=== PATIENT | male | born 1950 | race Caucasian/White ===

== ENCOUNTER 2019-07-13 15:14 | Emergency (ER) | payer MEDICARE, OTHER, SELFPAY ==
[2019-07-13 15:17] VITALS: BP 150/79; PULSE 98; RESP 16; TEMP 37.2; O2SAT 97; BMI 34.9
--- NOTE | 2019-07-13 15:20 | DI.RAD.S_ITS ---
PROCEDURE: XR HIP W PEL IF DONE RT 2V INDICATIONS: right hip pain, runs down thru hip, knee and ankle TECHNIQUE: AP pelvis with lateral view(s) of the right hip(s). COMPARISON: None. FINDINGS: Bones: No fractures or dislocations. Moderate right hip joint osteophytic changes are seen. Mild left hip joint osteoarthritis is also noted. No evidence of avascular necrosis the femoral head. Pelvic ring appears intact. No suspicious bony lesions. Degenerative disc disease in visualized lower lumbar spine is seen. Soft tissues: The visualized bowel gas pattern is normal. No suspicious soft tissue calcifications. IMPRESSION: Right worse than left bilateral hip joint osteoarthritis. No hip fracture or dislocation. No evidence of avascular necrosis. Dictated by: Luis E Beard M.D. on 07/13/2019 at 15:45 Approved by: Luis E Beard M.D. on 07/13/2019 at 15:51
[2019-07-13] MEDS: CYCLOBENZAPRINE 10 MG TABLET PO (17:02)
[2019-07-13] MEDS: KETOROLAC 60 MG/2 ML VIAL 30 MG IM (17:02)
[2019-07-13] MEDS: LIDOCAINE PATCH 1 EACH ADH..PATCH TOP (17:02)
--- NOTE | 2019-07-13 17:47 | ED_ITS ---
HPI - Extremity Problem <ISIDORO Pereyra - Last Filed: 07/13/19 17:53> General Chief complaint: Extremity Problem,Nontraumatic Stated complaint: right hip pain Time Seen by Provider: 07/13/19 16:23 Source: patient Mode of arrival: Ambulatory Limitations: no limitations History of Present Illness HPI Narrative: The patient is a 69-year-old male with history of diabetes who presents with his for chief complaint of right-sided hip pain. States that he started having hip pain the other day when he was moving a mattress. He saw a chiropractor, and improved. Then he woke up and was worse again today. He denies any falls or trauma. States that it got worse when he was moving a mattress a few days ago by himself which was a clean site mattress. He states he had some muscle spasm. Denies any previous injuries to that hip. States the pain radiates down his leg denies any back pain or neck pain Related Data Home Medications Medication Instructions Recorded Confirmed aspirin 81 mg PO DAILY 07/13/19 07/13/19 desonide 1 applic TOPICAL DIRECTED 07/13/19 07/13/19 glipizide 5 mg PO DAILY 07/13/19 07/13/19 hydrochlorothiazide 12.5 mg PO DAILY 07/13/19 07/13/19 lisinopril 10 mg PO DAILY 07/13/19 07/13/19 metformin 1,000 mg PO BID 07/13/19 07/13/19 simvastatin 10 mg PO DAILY 07/13/19 07/13/19 sitagliptin [Januvia] 50 mg PO DAILY 07/13/19 07/13/19 Previous Rx's Medication Instructions Recorded cyclobenzaprine 10 mg PO TID PRN #14 tab 07/13/19 ketorolac 10 mg PO TID #15 tab 07/13/19 lidocaine 1 patch TOP DAILY #15 each 07/13/19 Allergies Allergy/AdvReac Type Severity Reaction Status Date / Time No Known Drug Allergies Allergy Verified 07/13/19 15:17 Review of Systems <ISIDORO Pereyra - Last Filed: 07/13/19 17:53> Review of Systems Narrative: GENERAL: Denies chills, fatigue, malaise, fever, sweats. HEENT: Denies sinus pain, ear pain, sore throat, difficulty swallowing, dizzine ss. RESPIRATORY: Denies dyspnea, cough, wheezing, hemoptysis, sputum. CARDIOVASCULAR: Denies chest pain, palpitations, orthopnea, edema, GASTROINTESTINAL: Denies nausea, vomiting, abdominal pain, diarrhea, constipation, melena. : Denies dysuria, frequency, incontinence, hematuria, urinary retention. MUSCULOSKELETAL: See HPI SKIN: Denies rash, skin lesions, or other NEUROLOGIC: Denies weakness, headache, numbness, change in speech, confusion, seizures, incoordination. PSYCHIATRIC: No concerning psychosocial issues. 12 point review of systems is negative except for those stated above Patient History <ISIDORO Pereyra - Last Filed: 07/13/19 17:53> Social History Smoking Status: Unknown if ever smoked Smoking Status: Unknown if ever smoked alcohol intake frequency: a few times a month Substance Use Type: does not use Exam <ISIDORO Pereyra - Last Filed: 07/13/19 17:53> Narrative Exam Narrative: GENERAL: This is a well-nourished, well-developed patient, no acute distress HEAD: Atraumatic. Normocephalic. No temporal or scalp tenderness. EYES: Pupils equal round and reactive. Extraocular motions intact. No scleral icterus. No injection or drainage. ENT: Nose without bleeding, purulent drainage or septal hematoma. Throat without erythema, tonsillar hypertrophy or exudate. Uvula midline. Airway patent. NECK: Trachea midline. No JVD or lymphadenopathy. Supple, nontender, no meningeal signs. CARDIOVASCULAR: Regular rate and rhythm RESPIRATORY: No cough. No increased respiratory effort. No accessory muscle use. EXTREMITIES: Positive pedal pulses bilaterally. General pain to palpation right hip. Able flex and extend right hip. BACK: Nontender without deformity or crepitance. No flank tenderness. NEURO: AOx3. SKIN: No rash or erythema visible skin Initial Vital Signs Initial Vital Signs: Vital Signs Temperature 98.9 F 07/13/19 15:17 Pulse Rate 98 H 07/13/19 15:17 Respiratory Rate 16 07/13/19 15:17 Blood Pressure 150/79 H 07/13/19 15:17 Pulse Oximetry 97 07/13/19 15:17 <Flory Smith DO - Last Filed: 07/14/19 19:24> Initial Vital Signs Initial Vital Signs: Vital Signs Temperature 98.9 F 07/13/19 15:17 Pulse Rate 98 H 07/13/19 15:17 Respiratory Rate 16 07/13/19 15:17 Blood Pressure 150/79 H 07/13/19 15:17 Pulse Oximetry 97 07/13/19 15:17 Course <ISIDORO Pereyra - Last Filed: 07/13/19 17:53> Orders Ordered: Discontinued Medications Cyclobenzaprine HCl (Flexeril) 10 mg PO NOW ONE Stop: 07/13/19 16:38 Last Admin: 07/13/19 17:02 Dose: 10 mg Documented by: NIDIA Ketorolac Tromethamine (Toradol) 30 mg IM NOW ONE Stop: 07/13/19 16:38 Last Admin: 07/13/19 17:02 Dose: 30 mg Documented by: NIDIA Lidocaine (Lidoderm) 1 each TOP NOW ONE Stop: 07/13/19 16:38 Last Admin: 07/13/19 17:02 Dose: 1 each Documented by: NIDIA Vital Signs Vital signs: Vital Signs - 8 hr 07/13/19 15:17 Temperature 98.9 F Pulse Rate 98 H Respiratory Rate 16 Blood Pressure 150/79 H Pulse Oximetry 97 <Flory Smith DO - Last Filed: 07/14/19 19:24> Orders Ordered: Discontinued Medications Cyclobenzaprine HCl (Flexeril) 10 mg PO NOW ONE Stop: 07/13/19 16:38 Last Admin: 07/13/19 17:02 Dose: 10 mg Documented by: NIDIA Ketorolac Tromethamine (Toradol) 30 mg IM NOW ONE Stop: 07/13/19 16:38 Last Admin: 07/13/19 17:02 Dose: 30 mg Documented by: NIDIA Lidocaine (Lidoderm) 1 each TOP NOW ONE Stop: 07/13/19 16:38 Last Admin: 07/13/19 17:02 Dose: 1 each Documented by: NIDIA Vital Signs Vital signs: Vital Signs - 8 hr 07/13/19 15:17 Temperature 98.9 F Pulse Rate 98 H Respiratory Rate 16 Blood Pressure 150/79 H Pulse Oximetry 97 MDM - Extremity (Nontraumatic) <ISIDORO Pereyra - Last Filed: 07/13/19 17:53> Imaging Data Extremity x-ray #1: Radiologist's Impression: [address] [address] XRay Report Signed Patient: Rod Loaiza RMR#: [id number] : 1950Acct:[id number] Age/Sex: 69 / MDate of Service: 07/13/19 Loc: ED Accession Number: [id number] Procedure: XR hip w pel if done RT 2V Ordering Provider: Flory Smith D.O. PROCEDURE: XR HIP W PEL IF DONE RT 2V INDICATIONS: right hip pain, runs down thru hip, knee and ankle TECHNIQUE: AP pelvis with lateral view(s) of the right hip(s). COMPARISON: None. FINDINGS: Bones: No fractures or dislocations. Moderate right hip joint osteophytic changes are seen. Mild left hip joint osteoarthritis is also noted. No evidence of avascular necrosis the femoral head. Pelvic ring appears intact. No suspicious bony lesions. Degenerative disc disease in visualized lower lumbar spine is seen. Soft tissues: The visualized bowel gas pattern is normal. No suspicious soft tissue calcifications. IMPRESSION: Right worse than left bilateral hip joint osteoarthritis. No hip fracture or dislocation. No evidence of avascular necrosis. Dictated by: Luis E Beard M.D. on 07/13/2019 at 15:45 Approved by: Luis E Beard M.D. on 07/13/2019 at 15:51 MDM Narrative Medical decision making narrative: The patient is a 69-year-old male who presents with a chief complaint of hip pain. He is able to weightbear, neurovascularly intact. X-ray shows osteoarthritis. Patient was given Toradol and Flexeril in the emergency department. He did not want to wait to see if they worked as his had to drive home and she cannot drive at night. Discussed at length the importance of following up with primary care provider full further evaluation possible physical therapy etcetera. Discussed at length coming back to the emergency department for any acute concerns. Patient has no questions or concerns upon discharge and states understanding return precautions as well as follow-up care. Discharge Plan Departure Patient Disposition: Home Clinical Impression: Acute pain of right hip Discharge Date/Time: 07/13/19 17:53 Instructions: Help for Hip Pain, DI for Hip Pain Activity Restrictions/Additional Instructions: As discussed, the x-ray shows no acute fractures but it does show o steoarthritis, right side worse than left side. Please follow-up with primary care provider in the next few days. He may benefit from further evaluation, physical therapy cetera I have given you a prescription of Toradol. This is an NSAID. Do not combine it with other NSAIDs such as Aleve or ibuprofen. I suggest taking it with some food, as it can irritate your stomach. I sent a prescription of a muscle relaxer as well. This can be sedating. Do not take with any sedating agents such as alcohol. Do not take and drive etcetera. Please come back to emergency department for any acute concerns Prescriptions: New ketorolac 10 mg tablet 10 mg PO TID Qty: 15 RF: 0 lidocaine 5 % adhesive patch,medicated 1 patch TOP DAILY Qty: 15 RF: 0 cyclobenzaprine 10 mg tablet 10 mg PO TID PRN (Reason: muscle spasm) Qty: 14 RF: 0 No Action simvastatin 10 mg tablet 10 mg PO DAILY RF: 0 glipizide 5 mg tablet extended release 24hr 5 mg PO DAILY RF: 0 aspirin 81 mg tablet,delayed release (DR/EC) 81 mg PO DAILY RF: 0 desonide 0.05 % ointment 1 applic TOPICAL DIRECTED RF: 0 metformin 1,000 mg tablet 1,000 mg PO BID RF: 0 lisinopril 10 mg tablet 10 mg PO DAILY RF: 0 Januvia 50 mg tablet 50 mg PO DAILY RF: 0 hydrochlorothiazide 12.5 mg tablet 12.5 mg PO DAILY RF: 0 Referrals: Maria Fernanda Hassan [Primary Care Provider] -
== END 2019-07-13 17:53 | disposition home or self-care (01) ==
PROVIDERS: Emergency Provider Nurse Practitioner Family; PCP Nurse Practitioner Family
DX: M25.551 Pain in right hip (principal)
CPT/HCPCS: 73502; 96372; 99283; J1885

== ENCOUNTER 2025-04-06 13:47 | Day surgery (SDC) | payer MEDICARE, OTHER, SELFPAY ==
--- NOTE | 2025-04-06 | PATH_ITS ---
[facility] Accession Number: [id number] No. of containers..03 Tissue . 01 Material submitted: . PART A: colon - CECAL POLYP PART B: colon - DESCENDING COLON POLYP PART C: rectum - RECTAL POLYP . 01 Diagnosis: A. CECUM: Tubular adenoma. . B. DESCENDING COLON: Tubular adenoma. . C. RECTUM: Tubular adenoma. [place] 04/15/2025 1411 Local . 01 Electronically signed: . Kellie Lee DO, Pathologist NPI- [id number] . 01 Gross description: . A. Received in formalin with two patient identifiers and cecal polyp, is one 0.6 cm sapp tissue fragment. Inked black, bisected, and entirely submitted in cassette A1. B. Received in formalin with two patient identifiers and descending colon polyp, are two 0.2 to 0.3 cm sapp tissue fragments. Entirely submitted in cassette B1. C. Received in formalin with two patient identifiers and rectal polyp, are two 0.6 x 0.9 cm disrupted tissue fragments. The largest fragment is inked black and bisected. The specimen is entirely submitted in cassette C1. ([id number]) /WADE 04/10/2025 2117 Local . 01 Pathologist provided ICD-10: Z12.11 . 01 CPT . 506118, [id number], [id number] Specimen Comment: A courtesy copy of this report has been sent to [phone] Performed at: [address] [id number] MD Marcial Kemp MD Phone: [phone]
--- NOTE | 2025-04-06 14:39 | PM.HP.IH.1 ---
History of Present Illness History of Present Illness Date Patient Seen: 04/06/25 Time Patient Seen: 14:39 Chief complaint: Dx Colonoscopy w/poss bx Narrative: Rod is a 75 year old man with rectal bleeding. See office note for details. He is still having rectal bleeding. [facility] Social History (Updated 03/01/25 @ 16:05 by Mando Noe MA) marital status: household members: spouse occupational status: previously employed Meds Home Medications and Allergies Home Medications ?Medication ?Instructions ?Recorded ?Confirmed ?Type metformin 1,000 mg tablet 1,000 mg PO BID 07/13/19 03/01/25 History dulaglutide 0.75 mg/0.5 mL 0.75 mg SUBCUT QWEEK 03/01/25 03/01/25 History subcutaneous pen injector (Trulicity) empagliflozin 10 mg tablet 10 mg PO DAILY 03/01/25 03/01/25 History (Jardiance) lisinopril 10 1 tab PO DAILY 03/01/25 03/01/25 History mg-hydrochlorothiazide 12.5 mg tablet sodium,potassium,mag sulfates 17.5 See Rx Instructions PO .COMPLEX 03/01/25 Rx gram-3.13 gram-1.6 gram oral soln #354 mL (Suprep Bowel Prep Kit) Allergies Allergy/AdvReac Type Severity Reaction Status Date / Time No Known Drug Allergies Allergy Verified 03/01/25 16:12 Exam Const General: healthy appearing Assessment & Plan Assessment and plan (1) Rectal bleeding: Status: Acute Plan Colonoscopy with examination under anesthesia if needed. Time-Based Coding :: [TOTAL MINUTES] spent with patient and on the chart (including review of chart, obtaining history, exam, reviewing outside data, placing orders, documenting exam and treatment plan, and counseling patient) on [DATE]. PROFEE Stockroom Supervisor Document charge(s): No
[2025-04-06] MEDS: LACTATED RINGERS 1,000 ML 42 ML IV (14:45)
[2025-04-06 14:46] VITALS: BP 138/82; PULSE 100; RESP 20; TEMP 36.4; O2SAT 96
[2025-04-06 15:42] VITALS: BP 105/60; PULSE 82; RESP 19; TEMP 36.5; O2SAT 97
--- NOTE | 2025-04-06 15:44 | PM.OP.1 ---
Operative Date/Time/Diagnoses Date of procedure: 04/06/25 Time of procedure: 15:44 Pre-op diagnosis: Rectal bleeding Post-op diagnosis: same Procedure & Clinicians Procedure: Colonoscopy Transanal excision of rectal polyp Same procedure(s) as scheduled: Yes Surgeon: Bakari Landry Assisted?: No Anesthesia Type: MAC +/- Operative Notes Findings: Small polyps in the cecum and ascending and 1 cm polyp in the distal rectum Applied: none Estimated Blood Loss (mL): 5 Procedure in detail: Surgeon: Bakari Landry MD Anesthesia: Paige Marroquin CRNA Procedure: The patient was brought to the endoscopy suite, placed in left lateral decubitus position. The patient was connected to monitoring devices. A time-out was performed. Sedation was administered. Once the patient was adequately sedated, a digital rectal exam was performed and was normal. The scope was then inserted and advanced to the cecum where the appendiceal orifice was identified and photographed. The scope was then slowly withdrawn over greater than 6 minutes. The mucosa was thoroughly inspected. There was a 5 mm polyp in the cecum removed with a cold snare. There was a 5 mm polyp in the descending colon removed with a cold snare. There was a 1 cm polyp in the distal rectum. The scope was retroflexed in the rectum and a photograph was taken of the distal rectal polyp. The scope was straightened and removed. Next a well lubricated Hill-Fuller retractor was inserted through the anal sphincter. The polyp was visualized in the left lateral position. The polyp was a proximally 1 cm and seemed to originate just proximal to the dentate line. About 10 mL of Exparel mixed with Marcaine was injected into the base of the stalk. The polyp was resected using cautery taking a cuff of normal appearing mucosa. The remaining polypectomy wound was hemostatic. An 0 chromic stitch was placed to close the mucosal defect. The patient was awakened and brought to recovery. Scope withdrawal time: 8 minutes Sedation time: 30 minutes Findings: Small polyps in the cecum and descending colon, 1 cm polyp in the distal rectum Complications: none Post-operative Condition: stable Disposition: PACU
[2025-04-06 15:45] VITALS: BP 100/60; PULSE 78; RESP 20; O2SAT 96
[2025-04-06 15:50] VITALS: BP 102/62; PULSE 75; RESP 20; O2SAT 96
[2025-04-06 15:55] VITALS: BP 106/66; PULSE 72; RESP 21; O2SAT 97
[2025-04-06 16:00] VITALS: BP 104/64; PULSE 82; RESP 20; TEMP 36.3; O2SAT 96
== END 2025-04-06 16:38 | disposition home or self-care (01) ==
PROVIDERS: Referring Provider Surgery; Visit Provider Surgery
PROC: 0DJD8ZZ Inspection of Lower Intestinal Tract, Via Natural or Artificial Opening Endoscopic (ICD-10-PCS; CPT 45378; principal; 2025-04-06 15:45)
PROC: (CPT 45990; 2025-04-06 15:45)
DX: D12.0 Benign neoplasm of cecum (principal); D12.4 Benign neoplasm of descending colon; D12.8 Benign neoplasm of rectum; K62.5 Hemorrhage of anus and rectum; E11.9 Type 2 diabetes mellitus without complications; I10 Essential (primary) hypertension; E78.5 Hyperlipidemia, unspecified; Z79.84 Long term (current) use of oral hypoglycemic drugs
CPT/HCPCS: 45171; 45385; 82962; J0666; J2704; J7120